=== PATIENT | male | born 2000 | race Caucasian/White ===

== ENCOUNTER 2019-07-03 10:04 | Emergency (ER) | payer BC ==
[~2019-07-03] VITALS: Ht 177.8 cm; Wt 63.8 kg
[2019-07-03 10:08] VITALS: BP 125/75
== END 2019-07-03 11:22 | disposition home or self-care (01) ==
LOC: ED 11:00
DX: J06.9 Acute upper respiratory infection, unspecified (principal)
CPT/HCPCS: 71046; 99283

== ENCOUNTER 2019-12-14 20:08 | Emergency (ER) | payer BC ==
[~2019-12-14] VITALS: Ht 177.8 cm; Wt 65.4 kg
[2019-12-14 20:10] VITALS: BP 131/75
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
--- NOTE | 2019-12-14 21:17 | NUR ---
CONTINUES TO DENY NEED FOR PAIN MEDICATIONS. CHART UP FOR RECHECK
[2019-12-14] MEDS ORDERED: CEFAZOLIN 1,000 MG ONE (22:02)
[2019-12-14] MEDS ORDERED: NEOSPORIN OINT. PKT 1 PACKET ONE (22:02)
--- NOTE | 2019-12-14 22:09 | NUR ---
DC EDUCATION PROVIDED, PT DEMONSTRATES UNDERSTANDING. PT AMBULATED STEADILY TO DC WITH RN AND FAMILY
== END 2019-12-14 22:12 | disposition home or self-care (01) ==
LOC: ED 22:11
DX: S40.012A Contusion of left shoulder, initial encounter (principal); S50.02XA Contusion of left elbow, initial encounter; S00.91XA Abrasion of unspecified part of head, initial encounter; W18.39XA Other fall on same level, initial encounter; Y93.79 Activity, other specified sports and athletics; Y92.488 Other paved roadways as the place of occurrence of the external cause; Y99.8 Other external cause status
CPT/HCPCS: 99284